=== PATIENT | female | born 1990 | race Caucasian/White ===

== ENCOUNTER 2018-03-22 20:04 | Emergency (ER) | payer MEDICAID ==
[~2018-03-22] VITALS: Ht 167.6 cm; Wt 61.0 kg
[~2018-03-22 20:04] MED LIST: PHEN-873 PO
[2018-03-22] MEDS ORDERED: GUAI10SY2 PO (21:27)
[2018-03-22 21:33] VITALS: BP 124/89
== END 2018-03-22 21:34 | disposition home or self-care (01) ==
LOC: ER 20:05
DX: J02.9 Acute pharyngitis, unspecified (principal); R05 Cough; H92.03 Otalgia, bilateral
CPT/HCPCS: 87081; 87880; 99284